=== PATIENT | female | born 1980 | race Caucasian/White ===

== ENCOUNTER 2017-08-13 06:10 | Inpatient (IN) | payer MEDICAID ==
[2017-08-13] MEDS ORDERED: LACTATED RINGER'S 1,000 ML IV (06:48)
[2017-08-13] MEDS ORDERED: BUTORPHANOL 2 MG INJ IV (07:00)
[2017-08-13] MEDS ORDERED: LIDOCAINE 1% (MPF) 30 ML INJ INJ (07:00)
[2017-08-13] MEDS ORDERED: IBUPROFEN 600 MG TAB PO (07:00)
[2017-08-13] MEDS ORDERED: CARBOPROST 250 MCG INJ IM (07:00)
[2017-08-13] MEDS ORDERED: OXYTOCIN 30 UNITS/LR 500 ML IV ×2 (07:00)
[2017-08-13] MEDS ORDERED: MISOPROSTOL 200 MCG TAB PR (07:00)
[2017-08-13] MEDS ORDERED: METHYLERGONOVINE 0.2 MG INJ IM (07:00)
[2017-08-13] MEDS: LACTATED RINGER'S 1,000 ML IV ×3 (08:12→13:17)
[2017-08-13 08:48] LABS: ADD MAN DIFF? NO
[2017-08-13 08:52] LABS: WHITE BLOOD COUNT 8.2 10^3/ul (4.8-10.8)
[2017-08-13 08:52] LABS: BASOPHIL # 0.1 10^3/ul (0.0-0.1); BASOPHILS % 0.7 % (0.0-2.0); EOSINOPHILS # 0.1 10^3/ul (0.0-0.5); HEMATOCRIT 38.3 % (37.0-47.0); HEMOGLOBIN 13.1 g/dl (12.0-16.0); LYMPHOCYTES # 1.9 10^3/ul (0.8-2.9); MEAN CORPUSCULAR HEMOGLOBIN 30.8 pg (29.0-33.0); MEAN CORPUSCULAR HGB CONC 34.2 g/dl (32.0-37.0); MEAN CORPUSCULAR VOLUME 89.9 fl (82.0-101.0); MEAN PLATELET VOLUME 11.6 fl (7.4-10.4); MONOCYTE # 0.4 10^3/ul (0.3-0.9); MONOCYTES % 4.9 % (0.0-11.0); NEUTROPHIL # 5.7 10^3/ul (1.6-7.5); NEUTROPHILS % 69.3 % (39.0-77.0); PLATELET COUNT 150 10^3/UL (140-415); RED BLOOD COUNT 4.26 10^6/ul (4.20-5.40); RED CELL DISTRIBUTION WIDTH 14.5 % (11.5-14.5)
[2017-08-13 09:11] LABS: INR 0.93; PROTIME 12.6 Sec (11.9-14.9)
[2017-08-13 09:12] LABS: PARTIAL THROMBOPLASTIN TIME 26.2 Sec (25.0-35.0)
[2017-08-13] MEDS: OXYTOCIN 30 UNITS/LR 500 ML IV ×3 (09:14→20:06)
[2017-08-13 09:45] LABS: HEPATITIS B SURFACE ANTIGEN NEGATIVE (NEGATIVE)
[2017-08-13] MEDS ORDERED: FENTAnyl 2MCG/ML-ROPIV 0.2% 100 ML (13:18)
[2017-08-13] MEDS ORDERED: DEXTROSE 5%-LR 1,000 ML IV (14:22)
[2017-08-13] MEDS ORDERED: ONDANSETRON 4 MG INJ IV ×2 (15:00→20:30)
[2017-08-13] MEDS ORDERED: NALOXONE (0.4 MG/ML) INJ IV (15:00)
[2017-08-13] MEDS ORDERED: DIPHENHYDRAMINE 50 MG INJ IV (15:00)
[2017-08-13] MEDS ORDERED: TRIMETHOBENZAMIDE 100 MG/ML VIAL IM (15:00)
[2017-08-13] MEDS ORDERED: FENTAnyl 2MCG/ML-ROPIV 0.2% 100 ML BAG EPI (15:00)
[2017-08-13] MEDS ORDERED: ACETAMINOPHEN 325 MG TAB PO (20:30)
[2017-08-13] MEDS ORDERED: BENZOCAINE 20% 56 ML SPRAY TOP (20:30)
[2017-08-13] MEDS ORDERED: LANOLIN 7 GM TUBE TOP (20:30)
[2017-08-13] MEDS ORDERED: DIBUCAINE 1% 30 GM OINT PR (20:30)
[2017-08-13] MEDS ORDERED: HYDROCODONE/APAP (5/325) TAB PO ×2 (20:30)
[2017-08-13] MEDS ORDERED: OXYCODONE/ASPIRIN (4.88/325) TAB PO ×2 (20:30)
[2017-08-13] MEDS ORDERED: WITCH HAZEL/GLYCERIN PAD PR (20:30)
[2017-08-13] MEDS: SENNA/DOCUSATE NA (8.6MG/50MG) TAB PO (22:06)
[2017-08-13 23:14] LABS: RAPID PLASMA REAGIN NONREACTIVE (NR)
[2017-08-14] MEDS: IBUPROFEN 600 MG TAB PO ×5 (05:31→23:34)
[2017-08-14 07:35] LABS: ADD MAN DIFF? NO
[2017-08-14 07:49] LABS: BASOPHIL # 0.1 10^3/ul (0.0-0.1); BASOPHILS % 0.6 % (0.0-2.0); EOSINOPHILS # 0.2 10^3/ul (0.0-0.5); HEMATOCRIT 35.6 % (37.0-47.0); HEMOGLOBIN 12.2 g/dl (12.0-16.0); LYMPHOCYTES # 1.9 10^3/ul (0.8-2.9); LYMPHOCYTES % 18.2 % (15.0-51.0); MEAN CORPUSCULAR HEMOGLOBIN 30.7 pg (29.0-33.0); MEAN CORPUSCULAR HGB CONC 34.3 g/dl (32.0-37.0); MEAN CORPUSCULAR VOLUME 89.7 fl (82.0-101.0); MEAN PLATELET VOLUME 12.2 fl (7.4-10.4); MONOCYTE # 0.6 10^3/ul (0.3-0.9); MONOCYTES % 5.7 % (0.0-11.0); NEUTROPHIL # 7.7 10^3/ul (1.6-7.5); NEUTROPHILS % 72.9 % (39.0-77.0); PLATELET COUNT 150 10^3/UL (140-415); RED BLOOD COUNT 3.97 10^6/ul (4.20-5.40); RED CELL DISTRIBUTION WIDTH 14.6 % (11.5-14.5)
[2017-08-14 07:49] LABS: WHITE BLOOD COUNT 10.5 10^3/ul (4.8-10.8)
[2017-08-14] MEDS: SENNA/DOCUSATE NA (8.6MG/50MG) TAB PO ×2 (09:00→21:09)
[2017-08-15] MEDS: IBUPROFEN 600 MG TAB PO ×2 (05:31→12:50)
[2017-08-15] MEDS: MEASLES,MUMPS,RUBELLA VACCINE INJ SC* (09:00)
[2017-08-15] MEDS: SENNA/DOCUSATE NA (8.6MG/50MG) TAB PO (10:34)
== END 2017-08-15 16:10 | disposition home or self-care (01) | DRG 775 ==
LOC: OBT 06:10 → L-D 06:10 → OBT 07:24 → L-D 06:32 → PP1 20:16
PROVIDERS: Obstetrics & Gynecology
PROC: 10E0XZZ Delivery of Products of Conception, External Approach (ICD-10-PCS; principal; 2017-08-13)
PROC: 0HQ9XZZ Repair Perineum Skin, External Approach (ICD-10-PCS; 2017-08-13)
PROC: 3E033VJ Introduction of Other Hormone into Peripheral Vein, Percutaneous Approach (ICD-10-PCS; 2017-08-13)
DX: O69.81X0 Labor and delivery complicated by cord around neck, without compression, not applicable or unspecified (principal); O70.0 First degree perineal laceration during delivery; Z3A.38 38 weeks gestation of pregnancy; Z37.0 Single live birth
CPT/HCPCS: 62319; 82962; 85025; 85610; 85730; 86592; 86850; 86900; 86901; 87340; 99464